=== PATIENT | male | born 1950 | race Caucasian/White ===

== ENCOUNTER → 2016-08-09 | Outpatient (CLI) | payer MEDICARE, OTHER ==
--- NOTE | 2016-08-09 19:57 | HKNOTE ---
DATE OF SERVICE: 08/09/2016 REQUESTING PROVIDER: Dr. Lowell Chandler, [address] [facility] , [place] [address]. MAIN COMPLAINT: Pain in the right hip. HISTORY OF MAIN COMPLAINT: The patient is a 65-year-old male who complains of pain in his right hip which has been present for about 6 months without any history of injury. He was recently seen by Adrien Chandler, who ordered an MRI scan of the lumbar spine and referred him to me for further e valuation. The patient has not yet had the MRI scan because he is "claustrophobic." He hoping to g et some medications to allow him to get inside the MRI. PRESENT COMPLAINTS: The pain in the right hip is over the right greater trochanter with radiation t o the right buttocks. The pain radiates to the right buttocks and down the posterior aspect of the right leg. He gets intermittent spasms in the right leg, right buttocks and lower spine. He has no groin pain on the right. His pain is aggravated by straining at stool and weightbearing. Pain yulia ies between moderate to severe. He does get rest pain and night pain. He has tried taking Aleve an d Ambien and also some of his 's Vicodin. It has given him some relief. He also had a course o f physical therapy strengthening exercises. He complains of numbness over the lateral aspect of the right thigh from the buttocks to the knee. He limps after walking less than a quarter of a mile. He does not have a shoe lift. He can clip his toenails and tie his shoelaces. SPORTING ACTIVITIES: Patient plays golf (still does). PAST ORTHOPEDIC HISTORY: Left knee replacement by Dr. Rangel 2010. Pleased with the result. PRIOR CORTISONE INTAKE: Right hand for trigger thumb; lower back. ALCOHOL INTAKE: Two to 3 alcoholic beverages a month. OTHER JOINT PROBLEMS: Both shoulders have had torn rotator cuffs and also subsequently became froze n shoulders which had to be manipulated. BLOOD TESTS FOR ARTHRITIS: Yes (negative). WORK STATUS: Patient is retired. PHYSICAL EXAMINATION: GENERAL: The patient is an extremely fit-looking 65-year-old male. VITAL SIGNS: Height 6 feet, weight 225 pounds. Blood pressure 150/75, temperature 98.4. GAIT: Patient walks without a walking aid. His gait is normal. BACK: Dynamic pain assessment reveals a pain free range of motion in flexion, extension, lateral be nding, and rotation. Inspection of the spine reveals extension and lateral flexion to the right repr oduces the pain in his right buttocks and lower back. There is no lumbar paraspinal muscle spasm. Th e pelvis is level. Facet stress test is negative bilaterally. Palpation of the spine demonstrates no tenderness of the spinous processes, facet joints, sacroiliac joint, sciatic notch, or posterior th igh. NEUROLOGIC: Motor examination reveals no muscle deficit in the lower extremities. Deep tendon refle xes in the lower extremities: Right knee jerk plus, left knee jerk plus, right ankle jerk plus, lef t ankle jerk plus. Straight leg raising is positive on the right at 80 degrees, negative on the left at 85 degrees. Lasegue and MADINA tests are negative. HIPS: Both hips have a full range of motion without pain. He has no tenderness anywhere around eit her hip. KNEES: Scar of previous left knee replacement. Full range of motion without pain, external sign of infection or inflammation. Normal right knee examination. PAST MEDICAL HISTORY: 1. Diabetes. 2. Hypertension. 3. Benign prostatic hypertrophy. PAST SURGICAL HISTORY: 1. Left knee replacement in 2010. 2. Right shoulder surgery by Dr. Jain 35 years ago. ALLERGIES: NONE. MEDICATIONS: 1. NovoLog insulin. 2. Hyzaar. 3. Nexium. 4. Vytorin. 5. Finasteride. FAMILY HISTORY: Noncontributory. SYSTEMS REVIEW: Prone to headaches, heartburn, tingling sensations in both legs. Gait disturbance due to his "right hip." Hypertension, diabetes. Otherwise negative. HABITS: Patient does not smoke. He drinks 2 to 3 alcoholic beverages a month. MAJOR CASE DETECTIVE: Lowell Chandler, [address] [place] [address]. IMAGING: Plain x-rays of his pelvis and hips obtained today are entirely normal. The hip joint spa haseeb demonstrate no narrowing. The ____ of both femoral heads is normal. There are no osteophytes, subchondral sclerosis, and any other radiological evidence of underlying arthritic disorder. DISCUSSION: A 65-year-old male complaining of pain in his right "hip" without history of injury. P ain has been present for about 6 months and seems to have stabilized. His symptoms most definitely point towards a form of lumbar radiculopathy. DIAGNOSES: 1. Right-sided sciatica. 2. Diabetes. 3. Hypertension. 4. Benign prostatic hypertrophy. 5. Status post left knee replacement surgery. 6. Status post right shoulder surgery. MANAGEMENT: Patient will return to see me after he has had his lumbar MRI scan. Note that he is cl austrophobic and I gave him a prescription for Valium and Vicodin to get him through it. Dictated By: SHIRIN HANNA/GEOVANNY Conf#: [id number] DID#: [id number]
--- NOTE | 2016-08-10 11:03 | RADRPT ---
PROCEDURE: XR AP pelvis/right hip. CLINICAL INDICATION: Hip pain TECHNIQUE: AP pelvis/lateral view of the right hip performed COMPARISON: No prior studies are available for comparison. FINDINGS: There is moderate bilateral hip osteoarthrosis. This is associated with joint space narrowing, subch ondral sclerosis and osteophytosis. There is normal mineralization. No fractures or osseous lesion s are identified. The soft tissues are unremarkable. IMPRESSION: Moderate bilateral hip osteoarthrosis. RPTAT: HGDB .Sid Nagy MD, Date Time Electronically viewed and signed by .Sid Nagy MD, on 08/10/2016 11:02 .B/
--- NOTE | 2016-08-23 18:36 | HKNOTE ---
DATE OF SERVICE: 08/23/2016 The patient comes in today for review of his lumbar MRI scan. He continues to have the same symptoms he had before. He indicates that he has "bad days and worse days." Apparently today is a worse day. The patient played golf yesterday and he feels that the go lfing activity may have aggravated his back symptoms. The MRI scan of the lumbar spine obtained on 08/20/2016 was reviewed with the patient. The MRI is r eported as showing "at L4-5, there is a diffuse disk bulge with facet hypertrophy without canal or f oraminal stenosis. At L5-S1, there is a 2 mm central protrusion with partial annular aphasia and mi ld facet hypertrophy without canal foraminal stenosis." Note that the MRI also shows prostatic hype rtrophy. The report and the actual MRI scan pictures on a disk were reviewed with the patient. He was advised on the followin. I am still of the opinion that he has right-sided sciatica. 2. His hips are completely normal. 3. Although there is not much by way of MRI structural changes to demonstrate the actual source of his radiculopathy, he was advised that the MRI scan is far from perfect and had various soft tissue changes in the lumbar spine because of her lumbar radiculopathy without getting a clear cut pressur e forming disk extrusion. 4. One thing that is clearly indicated for him is that he is unlikely to need surgery on his spine, even now or in the foreseeable future. MANAGEMENT: The patient is given a prescription for Flexeril, Mobic and [place]. He is currently on Nexium for dyspepsia. He should continue taking the medications until he has run out of them or if the pain gets worse. Should he continue to have significant symptoms thereafter, I recommended that he see Dr. Lebron for a spine evaluation. In the latter case, he almost certainly will need to have a lumbar epidural cortisone injections, but I will leave that to Dr. Lebron. August 23, 2016 [place] [id number] [id number] RE: Nacho Calloway Dear Lowell: Thank you for referring Nacho Calloway. He was first seen in my office on 08/09/2016 and presented f or followup visit on 08/23/2016. He presented with a complaint of pain in his right hip. Clinically and radiologically, he has no hip pathology. The symptoms are entirely those of a right-sided sciatica which at first examination re vealed a positive sciatic stretch test on the right. He was sent for an MRI scan of the lumbar spin e, which was performed on 08/20/2016. He is seen for followup evaluation on 08/23/2016 (today). Fo rtunately, the MRI scan does not reveal structural changes which are in need of surgery. He was giv en a prescription for a muscle relaxant, an anti-inflammatory and a pain medication. He was also given the card of Dr. Singh Lebron should a conservative course of treatment fail. Enclosed is a copy of my office notes of 08/09/2016 and 08/23/2016 for your files. Thank you for your confidence in referring him to my care. With warmest regards, SHIRIN MAGDALENO MD Dictated By: SHIRIN HANNA/NTS Conf#: [id number] DID#: [id number] CC: Lowell Chandler MD;*EndCC*
== END | disposition home or self-care (01) ==
LOC: HKI 15:02
DX: M25.551 Pain in right hip (principal); M54.31 Sciatica, right side; I10 Essential (primary) hypertension; E11.9 Type 2 diabetes mellitus without complications; N40.0 Benign prostatic hyperplasia without lower urinary tract symptoms; Z96.652 Presence of left artificial knee joint
CPT/HCPCS: 73502; G0463

== ENCOUNTER → 2016-08-23 | Outpatient (CLI) | payer MEDICARE, OTHER | END | disposition home or self-care (01) | LOC: HKI 13:28 | DX: M16.0 Bilateral primary osteoarthritis of hip (principal) | CPT/HCPCS: G0463 ==